=== PATIENT | male | born 1965 | race Caucasian/White ===

== ENCOUNTER 2021-07-15 11:22 | Emergency (ER) | payer MEDICAID ==
[2021-07-15 11:41] VITALS: PULSE 102
--- NOTE | 2021-07-15 11:54 | EDM.PDOC ---
ED HPI GENERAL MEDICAL PROBLEM - General Chief Complaint: General Stated Complaint: INFECTED MOUTH / [facility] REFERRED Time Seen by Provider: 07/15/21 11:40 Source of Information: Reports: Patient, RN, RN Notes Reviewed History Limitations: Reports: No Limitations - History of Present Illness INITIAL COMMENTS - FREE TEXT/NARRATIVE: Anatoly is a 55 y/o male who presents to the ED via personal vehicle with complaints of dental pain and jaw swelling. The patient reports he was evaluated at [facility] today for left lower tooth pain which started about one week prior. Attempts were made to pull the tooth, however the Novocaine was not adequately working so his dentist suggested he come to this facility to receive IV antibiotics. The patient denies fever, shaking chills, palpitations, nausea, vomiting, or diarrhea. The patient notes mild throat tightness while laying down last night, which has since dissipated. He denies tongue swelling, drooling, or difficulty breathing. He has taken no medications or performed supportive cares for his pain. Left Oral/Mouth Pain Score (Numeric/FACES): 3 - Related Data Allergies Allergy/AdvReac Type Severity Reaction Status Date / Time No Known Allergies Allergy Verified 07/15/21 11:41 Home Meds: Home Meds Omeprazole 20 mg PO DAILY 05/20/21 [History] Past Medical History - Past Health History Medical/Surgical History: Denies Medical/Surgical History - Infectious Disease History Infectious Disease History: Reports: None Social & Family History - Family History Family Medical History: No Pertinent Family History - Tobacco Use Tobacco Use Status *Q: Never Tobacco User Second Hand Smoke Exposure: No - Caffeine Use Caffeine Use: Reports: None - Recreational Drug Use Recreational Drug Use: No ED ROS GENERAL - Review of Systems Review Of Systems: Comprehensive ROS is negative, except as noted in HPI. ED EXAM, GENERAL - Physical Exam Exam: See Below Exam Limited By: No Limitations General Appearance: Alert, No Apparent Distress, Thin Eye Exam: Bilateral Eye: EOMI, Normal Inspection, PERRL (3mm) Ears: Normal External Exam, Normal Canal, Hearing Grossly Normal, Normal TMs Ear Exam: Bilateral Ear: Auricle Normal, Canal Normal, TM normal Nose: Normal Inspection, Normal Mucosa, No Blood Throat/Mouth: Inflammation (To left lower jaw with swelling extending into the anterior mandible. ), Other (Poor dentition with multiple missing and chipped teeth) Head: Normocephalic, Facial Swelling (To left inferior mandible), Facial Tenderness (To left lower jaw). No: Sinus Tenderness Neck: Supple, Full Range of Motion, Tender Midline (Inferior left jaw). No: Tender Lateral Respiratory/Chest: No Respiratory Distress, Lungs Clear, Normal Breath Sounds, No Accessory Muscle Use, Chest Non-Tender. No: Crackles, Rales, Rhonchi, Wheezing, Stridor Cardiovascular: Normal Peripheral Pulses, Regular Rate, Rhythm, No Edema, No Gallop, No JVD, No Murmur, No Rub, Tachycardia Peripheral Pulses: 2+: Radial (L), Radial (R) GI/Abdominal: Normal Bowel Sounds, Soft, Non-Tender, No Distention, No Abnormal Bruit, No Mass, Pelvis Stable (Male) Exam: Deferred Rectal (Males) Exam: Deferred Back Exam: Normal Inspection, Full Range of Motion Extremities: Normal Inspection, Normal Range of Motion, Normal Capillary Refill Neurological: Alert, Oriented, CN II-XII Intact, Normal Cognition, Normal Gait, No Motor/Sensory Deficits Psychiatric: Normal Affect, Normal Mood Skin Exam: Warm, Dry, Intact, No Rash, Erythema (To left inferior mandible). No: Cyanosis, Jaundice, Mottled, Pallor Course - Vital Signs Last Recorded V/S: Last Vital Signs Temp 98.7 F 07/15/21 11:35 Pulse 102 H 07/15/21 11:35 Resp 16 07/15/21 11:35 BP 167/89 H 07/15/21 12:04 Pulse Ox 96 07/15/21 11:35 - Re-Assessments/Exams Free Text/Narrative Re-Assessment/Exam: 07/15/21 Findings of examination reviewed with patient. Will treat dental infection with clindamycin 300mg. Supportive cares for dental pain and swelling discussed. Patient instructed to follow up with primary care dentist as previously scheduled regarding todays visit. Red flag signs and symptoms which would warrant immediate reevaluation reviewed. Patient verbalized understanding and agreement with the plan of care. Departure - Departure Time of Disposition: 11:51 Disposition: Home, Self-Care 01 Condition: Fair Clinical Impression: Dental abscess, Pain, dental, Dental caries - Discharge Information *PRESCRIPTION DRUG MONITORING PROGRAM REVIEWED*: Not Applicable *COPY OF PRESCRIPTION DRUG MONITORING REPORT IN PATIENT TRENA: Not Applicable Instructions: Dental Caries, Adult, Dental Abscess Forms: ED Department Discharge Additional Instructions: Rx: clindamycin 300mg (#40) 1.) Start your antibiotics today and continue until all pills are gone, even as symptoms improve. 2.) Drink plenty of water to stay hydrated and keep mouth moist. 3.) You may take ibuprofen (Advil/Motrin) 400-800mg every six hours, as pain and swelling persist. You may also take acetaminophen (Tylenol) 650-1000mg every six hours, as pain persists. You may stagger these medications so you are henrry ing a dose of either every three hours. 4.) You may apply cold compresses to the area as pain and swelling persist, 20 minutes every hour. 5.) Follow up with your dentist, as previously scheduled, for repeat evaluation. 6.) Follow up with your primary care provider, or return to the emergency department, with any persistent or worsening symptoms despite medications. Sepsis Event Note (ED) - Evaluation Sepsis Screening Result: No Definite Risk - Focused Exam Vital Signs: Vital Signs Temp Pulse Resp BP Pulse Ox 07/15/21 12:04 167/89 H 07/15/21 11:35 98.7 F 102 H 16 158/117 H 96
[2021-07-15 12:05] VITALS: BP 167/89
== END 2021-07-15 12:06 | disposition home or self-care (01) ==
LOC: DL.ED 11:22
DX: K04.7 Periapical abscess without sinus (principal); K02.9 Dental caries, unspecified
CPT/HCPCS: 99283

== ENCOUNTER 2023-07-28 12:14 | Emergency (ER) | payer MEDICAID, OTHER ==
[2023-07-28] MEDS ORDERED: Sodium Chloride 0.9% 10 ML Syringe FLUSH PRN (12:17)
[2023-07-28 12:27] LABS: BASOPHILS PERCENT AUTO 0.8 % (0.0-1.0); EOSINOPHILS PERCENT AUTO 5.8 % (1.0-3.0); HEMATOCRIT 45.5 % (40.0-54.0); HEMOGLOBIN 15.5 g/dL (14.0-18.0); LYMPHOCYTES PERCENT AUTO 25.8 % (20.5-50.1); MEAN CORPUSCULAR HEMOGLOBIN 28.9 pg (27.0-34.0); MEAN CORPUSCULAR HGB CONC 34.1 g/dL (33.0-35.0); MEAN CORPUSCULAR VOLUME 84.9 fL (80-100); MONOCYTES PERCENT AUTO 10.5 % (2-8); NEUTROPHILS PERCENT AUTO 57.1 % (42.2-75.2); PLATELET COUNT,PLT 231 10^3/uL (150-450); RED BLOOD CELL COUNT 5.36 10^6/uL (4.6-6.2); WHITE BLOOD CELL COUNT,WBC 4.9 10^3/uL (5.0-10.0)
[2023-07-28 12:55] LABS: A/G RATIO 1.1; ALBUMIN 3.9 g/dL (3.4-5.0); ANION GAP 12.7 mEq/L (7-13); BILIRUBIN TOTAL 0.6 mg/dL (0.2-1.0); BUN/CREATININE RATIO 15.7 (No establ ref range); CALCIUM 9.7 mg/dL (8.5-10.1); CREATININE 1.02 mg/dL (0.70-1.30); EST CRCL DRUG DOSING (CG) 85.59 mL/min; POTASSIUM,K 3.7 mmol/L (3.5-5.1); PROTEIN TOTAL,TP 7.5 g/dL (6.4-8.2)
[2023-07-28 13:11] VITALS: BP 133/89; PULSE 69
== END 2023-07-28 13:15 | disposition home or self-care (01) ==
LOC: DL.ED 12:14
DX: S06.0XAA Concussion with loss of consciousness status unknown, initial encounter (principal); Z79.899 Other long term (current) drug therapy; W01.198A Fall on same level from slipping, tripping and stumbling with subsequent striking against other object, initial encounter
CPT/HCPCS: 36415; 70450; 72125; 80053; 85025; 99283; 99285; J3490